=== PATIENT | female | born 1970 | race Hispanic/Latino ===

== ENCOUNTER 2020-08-30 12:21 | Inpatient (IN) | payer BC, OTHER ==
[~2020-08-30] VITALS: Ht 162.6 cm; Wt 69.7 kg
[2020-08-30 13:33] LABS: ABG BASE EXCESS 1.6 mmol/L (-2.0-3.0); ABG HCO3 24.6 mmol/L (21.0-28.0); ABG OXYGEN SATURATION 94.5 % (95.0-99.0); ABG PCO2 34 mmHg (32-45)
[2020-08-30 13:59] LABS: BASOPHILS % (AUTO) 0.3 % (0.0-5.0); EOSINOPHILS % (AUTO) 0.3 % (0.0-8.0); HEMATOCRIT 42.6 % (36-48); LYMPHOCYTES % (AUTO) 36.6 % (21.0-51.0); MEAN CORPUSCULAR HEMOGLOBIN 30.1 pg (27.0-33.0); MEAN CORPUSCULAR HGB CONC 33.6 g/dL (32.0-36.0); MEAN CORPUSCULAR VOLUME 89.7 fL (79-99); MONOCYTES % (AUTO) 7.7 % (3.0-13.0); NEUTROPHILS % (AUTO) 54.8 % (40.0-77.0); PLATELET COUNT (AUTO) 163 K/uL (130-400); RED BLOOD CELL COUNT(AUTO) 4.75 MIL/uL (4.00-5.50); RED CELL DISTRIBUTION WIDTH 11.9 % (11.0-15.5); WHITE BLOOD COUNT (AUTO) 3.6 K/uL (4.8-10.8)
[2020-08-30 14:14] LABS: CREATININE 0.9 mg/dL (0.5-1.5); POTASSIUM 3.5 mmol/L (3.5-5.1)
[2020-08-30 14:19] LABS: ALBUMIN 3.8 g/dL (3.5-5.0); BILIRUBIN,TOTAL 0.3 mg/dL (0.2-1.0); RAPID GROUP A STREP NEGATIVE (NEGATIVE); TOTAL PROTEIN, SERUM 8.6 g/dL (6.0-8.3)
[2020-08-30 14:41] LABS: APPEARANCE,URINE Clear (CLEAR); BILIRUBIN,URINE Negative (NEGATIVE); COLOR,URINE Dark Yellow (YELLOW); GLUCOSE, URINE (UA) Negative (NEGATIVE); KETONES,URINE Trace mg/dL (NEGATIVE); LEUKOCYTE ESTERASE ,URINE Negative (NEGATIVE); NITRATE,URINE Negative (NEGATIVE); OCCULT BLOOD,URINE Negative (NEGATIVE); PH,URINE 5.5 (5.0-8.0); PROTEIN,URINE Negative (NEGATIVE)
[2020-08-30] MEDS ORDERED: DEXAMETHASONE SOD PHOSPHATE 10MG/ML 1ML VIAL ONE (14:43)
[2020-08-30] MEDS ORDERED: AZITHROMYCIN 500MG+NS 250ML 250 ML IV ONE (14:43)
[2020-08-30] MEDS ORDERED: ALBUTEROL INHALER 90MCG/INH IH ONE (14:43)
[2020-08-30] MEDS ORDERED: CEFTRIAXONE SODIUM 1 GM ONE (14:44)
[2020-08-30 14:49] LABS: RBC,URINE 0-1 /HPF (0-1); WBC,URINE 0-1 /HPF (0-1)
[2020-08-30 14:50] LABS: BACTERIA,URINE Few /HPF (None Seen); MUCUS,URINE Few LPF (None Seen); SQUAMOUS EPITHELIAL CELL,UR Few /HPF (0-2)
[2020-08-30 16:06] LABS: LACTATE DEHYDROGENASE 317 U/L (81-234); THYROID STIMULATING HORMONE 12.65 uIU/mL (0.36-3.74)
[2020-08-30] MEDS ORDERED: IBUPROFEN 600 MG TABLET ONE (20:06)
[2020-08-31 03:35] LABS: HEMATOCRIT 37.3 % (36-48); LYMPHOCYTES % (AUTO) 28.2 % (21.0-51.0); MEAN CORPUSCULAR HEMOGLOBIN 30.3 pg (27.0-33.0); MONOCYTES % (AUTO) 4.1 % (3.0-13.0); NEUTROPHILS % (AUTO) 67.2 % (40.0-77.0); PLATELET COUNT (AUTO) 147 K/uL (130-400); RED BLOOD CELL COUNT(AUTO) 4.19 MIL/uL (4.00-5.50); RED CELL DISTRIBUTION WIDTH 11.9 % (11.0-15.5); WHITE BLOOD COUNT (AUTO) 2.2 K/uL (4.8-10.8)
[2020-08-31 03:55] LABS: ALBUMIN 3.1 g/dL (3.5-5.0); BILIRUBIN,TOTAL 0.2 mg/dL (0.2-1.0); CREATININE 0.7 mg/dL (0.5-1.5); CRP QUANTITATIVE 18.5 mg/L (0.00-9.0); TOTAL PROTEIN, SERUM 7.4 g/dL (6.0-8.3)
[2020-08-31 05:01] LABS: BAND NEUTROPHILS % (MANUAL) 3 % (0-2); LYMPHOCYTES % (MANUAL) 29 % (22-44); MAN.DIFF COMMENT-IMPRESSION MANUAL DIFFERENTIAL; MONOCYTES % (MANUAL) 5 % (2-9); PLATELET MORPHOLOGY COMMENT ADEQUATE; REACTIVE LYMPHOCYTES 3 % (0-0); SEGMENTED NEUTROPHILS % 60 % (40-70)
[2020-08-31] MEDS ORDERED: DEXAMETHASONE SOD PHOSPHATE 4 MG/ML 1ML VIAL ONE (08:12)
[2020-08-31] MEDS ORDERED: ENOXAPARIN SODIUM 40 MG/0.4 ML SYRINGE SQ ONE (08:13)
[2020-08-31] MEDS: ENOXAPARIN SODIUM 40 MG/0.4 ML SYRINGE SQ SCH (09:00)
[2020-08-31] MEDS: DEXAMETHASONE SOD PHOSPHATE 4 MG/ML 1ML VIAL IVP SCH (09:00)
[2020-08-31] MEDS ORDERED: THYR90TA PO (12:02)
[2020-08-31] MEDS ORDERED: MULT-1203 PO (12:02)
[2020-08-31] MEDS ORDERED: ESTR1TAB17 PO (12:02)
[2020-08-31] MEDS ORDERED: AZITHROMYCIN 500MG+NS 250ML 250 ML IV ONE (13:15)
[2020-08-31] MEDS ORDERED: CEFTRIAXONE SODIUM 1 GM ONE (13:15)
[2020-08-31] MEDS: CEFTRIAXONE SODIUM 1 GM IVP SCH (14:00)
[2020-08-31] MEDS: AZITHROMYCIN 250 MG TABLET PO SCH (14:00)
[2020-08-31 19:32] VITALS: BP 150/75
[2020-09-01] VITALS: BP 130/81
[2020-09-01 03:44] VITALS: BP 120/46
[2020-09-01 05:28] LABS: HEMATOCRIT 39.7 % (36-48); LYMPHOCYTES % (AUTO) 11.3 % (21.0-51.0); MEAN CORPUSCULAR HGB CONC 33.5 g/dL (32.0-36.0); MEAN CORPUSCULAR VOLUME 89.4 fL (79-99); MONOCYTES % (AUTO) 5.1 % (3.0-13.0); NEUTROPHILS % (AUTO) 83.3 % (40.0-77.0); PLATELET COUNT (AUTO) 203 K/uL (130-400); RED BLOOD CELL COUNT(AUTO) 4.44 MIL/uL (4.00-5.50); RED CELL DISTRIBUTION WIDTH 11.9 % (11.0-15.5); WHITE BLOOD COUNT (AUTO) 6.3 K/uL (4.8-10.8)
[2020-09-01 05:51] LABS: ALANINE AMINOTRANSFERASE 26 U/L (12-78); ALBUMIN 3.4 g/dL (3.5-5.0); ASPARTATE AMINOTRANSFERASE 36 U/L (10-37); BILIRUBIN,TOTAL 0.2 mg/dL (0.2-1.0); CARBON DIOXIDE 27 mmol/L (21-32); CHLORIDE 102 mmol/L (101-111); CREATININE 0.9 mg/dL (0.5-1.5); GLOMERULAR FILTR. RATE CALC 70 mL/min (>60); GLUCOSE,RANDOM 97 mg/dL (70-105); LACTATE DEHYDROGENASE 251 U/L (81-234); POTASSIUM 3.9 mmol/L (3.5-5.1); SODIUM SERUM 139 mmol/L (136-145); UREA NITROGEN, BLOOD 16 mg/dL (7-18)
[2020-09-01] MEDS: IBUPROFEN 600 MG TABLET PO PRN ×3 (07:52→15:06)
[2020-09-01] MEDS: ENOXAPARIN SODIUM 40 MG/0.4 ML SYRINGE SQ SCH (07:53)
[2020-09-01] MEDS: DEXAMETHASONE SOD PHOSPHATE 4 MG/ML 1ML VIAL IVP SCH (07:54)
[2020-09-01] MEDS: AZITHROMYCIN 250 MG TABLET PO SCH (14:54)
[2020-09-01] MEDS: CEFTRIAXONE SODIUM 1 GM IVP SCH (14:55)
[2020-09-01 20:00] VITALS: BP 134/70
[2020-09-01] MEDS ORDERED: ONDANSETRON HCL 4 MG/2 ML VIAL IVP PRN (23:00)
[2020-09-01] MEDS ORDERED: SODIUM CHLORIDE 0.9% 1000ML 1,000 ML IV ONE ×2 (23:00→23:03)
[2020-09-01] MEDS ORDERED: ONDANSETRON HCL 4 MG/2 ML VIAL ONE (23:02)
[2020-09-02 00:48] VITALS: BP 121/70
[2020-09-02 03:51] VITALS: BP 114/76
[2020-09-02 04:49] LABS: HEMATOCRIT 36.8 % (36-48); LYMPHOCYTES % (AUTO) 16.6 % (21.0-51.0); MEAN CORPUSCULAR HEMOGLOBIN 29.5 pg (27.0-33.0); MEAN CORPUSCULAR HGB CONC 32.9 g/dL (32.0-36.0); MEAN CORPUSCULAR VOLUME 89.8 fL (79-99); MONOCYTES % (AUTO) 8.7 % (3.0-13.0); NEUTROPHILS % (AUTO) 74.2 % (40.0-77.0); PLATELET COUNT (AUTO) 195 K/uL (130-400); WHITE BLOOD COUNT (AUTO) 4.2 K/uL (4.8-10.8)
[2020-09-02 05:04] LABS: ALBUMIN 2.9 g/dL (3.5-5.0); BILIRUBIN,TOTAL 0.2 mg/dL (0.2-1.0); CREATININE 0.7 mg/dL (0.5-1.5); MAGNESIUM 2.2 mg/dL (1.80-2.40); POTASSIUM 3.8 mmol/L (3.5-5.1); TOTAL PROTEIN, SERUM 6.9 g/dL (6.0-8.3)
[2020-09-02 08:00] VITALS: BP 127/82
[2020-09-02] MEDS: ENOXAPARIN SODIUM 40 MG/0.4 ML SYRINGE SQ SCH (09:29)
[2020-09-02] MEDS: DEXAMETHASONE SOD PHOSPHATE 4 MG/ML 1ML VIAL IVP SCH (09:29)
[2020-09-02 11:51] VITALS: BP 137/76
[2020-09-02] MEDS ORDERED: DEXA6TAB PO (13:44)
[2020-09-02] MEDS ORDERED: ONDA4TAB4 PO (13:44)
[2020-09-02] MEDS ORDERED: APIX2.5T PO (13:44)
[2020-09-02] MEDS ORDERED: LEVO50TA11 PO (13:44)
[2020-09-02] MEDS ORDERED: IBUP-2077 PO (13:44)
[2020-09-02] MEDS: CEFTRIAXONE SODIUM 1 GM IVP SCH (14:11)
[2020-09-02] MEDS: AZITHROMYCIN 250 MG TABLET PO SCH (14:12)
== END 2020-09-02 15:40 | disposition home or self-care (01) | DRG 177 ==
LOC: EDH 12:21 → EDHIP 15:09 → 2AH 08-31 20:19
PROVIDERS: ADMIT Internal Medicine; ATTEND Internal Medicine
DX: U07.1 COVID-19 (principal); J12.89 Other viral pneumonia; J96.01 Acute respiratory failure with hypoxia; J44.0 Chronic obstructive pulmonary disease with (acute) lower respiratory infection; D68.59 Other primary thrombophilia; E03.9 Hypothyroidism, unspecified; Z90.711 Acquired absence of uterus with remaining cervical stump; Z79.899 Other long term (current) drug therapy; R53.81 Other malaise; Z88.8 Allergy status to other drugs, medicaments and biological substances; Z91.018 Allergy to other foods
CPT/HCPCS: 36415; 36600; 71045; 80053; 81001; 81025; 82728; 82803; 82948; 83605; 83615; 83735; 84145; 84439; 84443; 85025; 85378; 86140; 87426; 87880; G0378; J0456; J0696; J1100; J1650; J2405; J7030